=== PATIENT | male | born 2000 | race Two or more races ===

== ENCOUNTER 2020-02-26 11:11 | Emergency (ER) | payer MEDICAID ==
[~2020-02-26] VITALS: Ht 152.4 cm; Wt 48.2 kg
[2020-02-26 11:25] VITALS: BP 122/75
== END 2020-02-26 14:43 | disposition home or self-care (01) ==
LOC: EDBD 11:11 → ER 11:11
DX: K64.9 Unspecified hemorrhoids (principal)